=== PATIENT | male | born 1980 | race Caucasian/White ===

== ENCOUNTER 2018-04-18 13:16 | Emergency (ER) | payer OTHER ==
[~2018-04-18] VITALS: Ht 185.4 cm; Wt 87.7 kg
[2018-04-18] MEDS ORDERED: PRILOSEC 20MG20 MG PO (13:26)
[2018-04-18] MEDS ORDERED: ORPHENADRINE C100 MG PO (14:30)
[2018-04-18] MEDS ORDERED: KETOROLAC10 MG PO (14:30)
[2018-04-18] MEDS ORDERED: NORCO 325 MG-51 TA1 PO (14:30)
[2018-04-18 14:43] VITALS: BP 111/74
== END 2018-04-18 14:41 | disposition home or self-care (01) ==
LOC: ED 13:16
DX: M54.5 Low back pain (principal); M62.830 Muscle spasm of back; X50.1XXA Overexertion from prolonged static or awkward postures, initial encounter
CPT/HCPCS: J1885; J2360

== ENCOUNTER 2018-06-21 23:15 | Emergency (ER) | payer OTHER ==
[~2018-06-21] VITALS: Ht 185.4 cm; Wt 81.8 kg
[~2018-06-21 23:15] MED LIST: KETOROLAC10 MG PO; NORCO 325 MG-51 TA1 PO; ORPHENADRINE C100 MG PO; PRILOSEC 20MG20 MG PO
[2018-06-22 00:39] LABS: HEMATOCRIT 40.3 % (42.0-52.0); HEMOGLOBIN 14.5 g/dL (13.5-18.0); MEAN CELL VOLUME 91 fl (78-100); MEAN CORPUSCULAR HEMOGLOBIN 33 pg (27-31); MEAN CORPUSCULAR HGB CONC 36 g/dL (33-37); PLATELET COUNT 249 K/mm3 (130-400); RED BLOOD COUNT 4.41 M/mm3 (4.20-5.60); RED CELL DISTRIBUTION WIDTH 12.6 % (11.5-14.5); WHITE BLOOD COUNT 10.2 K/mm3 (4.8-10.8)
[2018-06-22 00:42] LABS: ALBUMIN 4.3 g/dL (3.5-5.0); CALCIUM 9.2 mg/dL (8.4-10.2); POTASSIUM 3.7 mmol/L (3.6-5.0); TOTAL BILIRUBIN 0.5 mg/dL (0.2-1.3)
[2018-06-22 00:58] LABS: D-DIMER 0.17 mg/L FEU (0.15-0.50)
[2018-06-22 00:59] LABS: LYMPHOCYTE 47 % (20-51); MONOCYTE 10 % (3-10); NEUTROPHILS 39 % (42-75)
[2018-06-22 04:00] VITALS: BP 131/74
== END 2018-06-22 04:00 | disposition home or self-care (01) ==
LOC: ED 23:15
PROVIDERS: Family Medicine
DX: R07.89 Other chest pain (principal); K21.9 Gastro-esophageal reflux disease without esophagitis; I10 Essential (primary) hypertension; R94.31 Abnormal electrocardiogram [ECG] [EKG]; Z79.899 Other long term (current) drug therapy